=== PATIENT | male | born 1955 | race African-American/Black ===

== ENCOUNTER → 2019-08-19 | Outpatient (CLI) | payer OTHER ==
[2019-08-19 13:45] LABS: ALBUMIN 3.6 g/dL (3.4-5.0); ALBUMIN/GLOBULIN RATIO 0.7 (1.0-1.7); GFR 91.3; POTASSIUM 3.2 mmol/L (3.5-5.1); TOTAL BILIRUBIN 2.3 mg/dL (0.2-1.0); TOTAL PROTEIN 8.6 g/dL (6.4-8.2)
== END | disposition home or self-care (01) ==
LOC: LAB 12:23
PROVIDERS: ATTEND Nurse Practitioner Family
DX: C18.7 Malignant neoplasm of sigmoid colon (principal)
CPT/HCPCS: 36415; 80053